=== PATIENT | female | born 1985 | race Caucasian/White ===

== ENCOUNTER 2019-02-10 08:37 | Emergency (ER) | payer SELFPAY ==
[~2019-02-10] VITALS: Ht 168.9 cm; Wt 111.2 kg
[2019-02-10 09:00] VITALS: BP 145/96
[2019-02-10] MEDS ORDERED: CETI10TA16 PO (09:31)
[2019-02-10] MEDS ORDERED: METH4TAB2 PO (09:31)
--- NOTE | 2019-02-10 09:31 | PHYS DOC ---
Past Medical History Past Medical History: GERD Past Surgical History: Cholecystectomy Alcohol Use: None Drug Use: None Adult General Chief Complaint Chief Complaint: COUGH HPI HPI Patient is a 33 year old female who presents to the emergency department with complaints of a dry cough and a sore throat for the last week. Patient states that she did have some left ear pain 2 days ago but currently denies any pain. She denies any fever, nausea, vomiting, diarrhea, abdominal pain, headache, or sinus pressure. Patient states that her voice has been hoarse, her child was diagnosed with strep over a week ago. She currently denies any pain at this time. Review of Systems Review of Systems Constitutional: Denies fever or chills [] Eyes: Denies change in visual acuity, redness, or eye pain [] HENT: Reports nasal congestion, sore throat, and hoarse voice for over a week, denies any ear pain at this time Respiratory: see history of present illness Cardiovascular: No additional information not addressed in HPI [] GI: Denies abdominal pain, nausea, vomiting, or diarrhea [] Integument: Denies rash or skin lesions [] Neurologic: Denies headache, focal weakness or sensory changes [] Complete systems were reviewed and found to be within normal limits, except as documented in this note. Allergies Allergies Allergies Coded Allergies Type Severity Reaction Last Updated Verified No Known Drug Allergies 02/10/19 No Physical Exam Physical Exam Constitutional: Well developed, well nourished, no acute distress, non-toxic appearance, obese. [] HENT: Normocephalic, atraumatic, bilateral external ears normal, bilateral TMs normal, posterior pharynx normal, tonsils normal, oropharynx moist, no oral exudates, nasal turbinates erythematous and edematous, no tenderness to pal pation of frontal or maxillary sinuses Eyes: PERRLA, allergic shiners bilaterally, conjunctiva normal, no discharge. [] Neck: Normal range of motion, no tenderness, supple, no stridor. [] Cardiovascular:Heart rate regular rhythm, no murmur [] Lungs & Thorax: Bilateral breath sounds clear to auscultation [] Skin: Warm, dry, no erythema, no rash. [] Extremities: No cyanosis, ROM intact Neurologic: Alert and oriented X 3, no focal deficits noted. [] Psychologic: Affect normal, judgement normal, mood normal. [] Current Patient Data Vital Signs Vital Signs Date Time Temp Pulse Resp B/P (MAP) Pulse Ox O2 Delivery O2 Flow Rate FiO2 02/10/19 09:00 97.9 108 18 145/96 (112) 98 Room Air 97.9 EKG EKG [] Radiology/Procedures Radiology/Procedures [] Course & Med Decision Making Course & Med Decision Making Pertinent Labs and Imaging studies reviewed. (See chart for details) dx: Allergic rhinitis, cough Encouraged patient to continue to use her Nasonex spray. We'll prescribe Zyrtec 10 mg tablets 1 tablet by mouth at at bedtime. Increase clear fluids, avoid triggers such as smoke, perfumes, animal dander, and dust. Physical exam is not concerning for infectious process, patient agrees. We'll prescribe Medrol Dosepak. Patient verbalized an understanding of home care, medications, follow-up, and return to ED instructions and was in agreement with the plan of care. [] Dragon Disclaimer Dragon Disclaimer This electronic medical record was generated, in whole or in part, using a voice recognition dictation system. Departure Departure Impression: Primary Impression: Allergic rhinitis Additional Impression: Cough in adult Disposition: 01 HOME, SELF-CARE Condition: STABLE Referrals: NO PCP (PCP) Patient Instructions: Allergic Rhinitis, Cough, Adult, [id number] Additional Instructions: Fill prescription(s) and use as directed. Continue using urine is next nasal spray. Tylenol or ibuprofen as needed for pain/fever. Increase clear fluids. Avoid triggers such as smoke, fragrance, dust, and pollen. May take OTC cough suppressants as needed. Follow-up with your primary care doctor as needed, return to the ER if your symptoms worsen. Scripts Cetirizine Hcl (CETIRIZINE HCL) 10 Mg Tablet 1 TAB PO DAILY, #30 TAB 0 Refills Prov: HORACE CASAREZ GARNETT FEEDER 02/10/19 Methylprednisolone (MEDROL) 4 Mg Tab.ds.pk 1 PKG PO UD, #1 PKG 0 Refills Prov: HORACE CASAREZ GARNETT FEEDER 02/10/19 Problem Qualifiers Primary Impression: Allergic rhinitis Allergic rhinitis trigger: unspecified Allergic rhinitis seasonality: unspecified Qualified Codes: J30.9 - Allergic rhinitis, unspecified HORACE CASAREZ GARNETT FEEDER Feb 10, 2019 09:31
== END 2019-02-10 09:43 | disposition home or self-care (01) ==
LOC: ER 08:37
DX: J30.9 Allergic rhinitis, unspecified (principal); R05 Cough; H92.02 Otalgia, left ear; K21.9 Gastro-esophageal reflux disease without esophagitis; Z90.49 Acquired absence of other specified parts of digestive tract
CPT/HCPCS: 99283